=== PATIENT | female | born 1970 | race Caucasian/White ===

== ENCOUNTER 2021-02-11 13:22 | Outpatient (REF) | payer MEDICAID, SELFPAY ==
--- NOTE | 2021-02-11 11:30 | PAPFT_PTH ---
PATIENT: Cindy Herrmann LOC: [facility]#:[id number] AGE/SX: 50/F ROOM: RE02/11/[address]: Leigha Solano : 1970 BED: DIS: 02/11/2021 SPEC #: [id number] RECD: 02/14/21 12:53 STATUS: RADHA REIron #: [id number] SANDY: 02/11/21 11:[address]: Leigha Solano DEPT: [facility] Cytology RECD BY: Charity Sr Tissues: 1 - CX/ENDOCX FOR PAP SMEARS Procedures: PAP THIN PREP/[facility] Screening HPV DNA PROBE Comments: [id number]
[2021-02-11 20:32] LABS: HCT 38.9 % (36.0-46.0); MCH 27.5 pg (27.0-33.0); MCHC 30.8 % (32.0-36.0); MCV 89.2 fL (80-95); MPV 9.4 fL (8.0-11.0); Platelet Count 354 10^3/uL (130-400); RBC 4.36 10^6/uL (3.93-5.22); RDW 14.8 % (11.7-14.6); RDW-SD 48.5 fL; WBC 7.61 10^3/uL (4.4-10.8)
[2021-02-11 20:54] LABS: Hemoglobin A1C 5.6 % (<5.7)
[2021-02-11 20:56] LABS: ALT 14 U/L (14-59); AST 17 U/L (15-37); Albumin 3.5 g/dL (3.4-5.0); Alkaline Phosphatase 82 U/L (46-116); BUN 11 mg/dL (7-18); Bilirubin, Total 0.3 mg/dL (0.2-1.0); CREATININE 0.8 mg/dL (0.55-1.02); Calcium 8.7 mg/dL (8.5-10.1); Calculated LDL 85 mg/dL (<100); Chloride 103 mmol/L (98-107); Cholesterol 155 mg/dL (<200); Glucose 77 mg/dL (74-106); HDL Cholesterol 58 mg/dL (40-60); Potassium 4.1 mmol/L (3.5-5.1); Sodium 139 mmol/L (136-145); TSH (W/Ref FT4) 3.08 uIU/mL (0.36-3.74); Total Protein 7.7 g/dL (6.4-8.2); Triglyceride 61 mg/dL (<150)
== END 2021-02-11 13:23 | disposition home or self-care (01) ==
LOC: NCHCN 13:22
PROVIDERS: PCP Family Medicine; Visit Provider Family Medicine
DX: E03.9 Hypothyroidism, unspecified (principal); N92.0 Excessive and frequent menstruation with regular cycle; E66.9 Obesity, unspecified; Z12.4 Encounter for screening for malignant neoplasm of cervix; Z00.00 Encounter for general adult medical examination without abnormal findings; Z13.1 Encounter for screening for diabetes mellitus; Z11.51 Encounter for screening for human papillomavirus (HPV)
CPT/HCPCS: 80053; 80061; 85027; 88142; 83036; 84443; 87624

== ENCOUNTER 2024-12-01 15:16 | Outpatient (REF) | payer OTHER, SELFPAY ==
[2024-12-01 22:01] LABS: TSH 3.54 uIU/mL (0.36-3.74)
[2024-12-02 21:08] LABS: Calculated LDL 106 mg/dL (<100); Cholesterol 196 mg/dL (<200); HDL Cholesterol 71 mg/dL (>or=50); Triglyceride 98 mg/dL (<150); Vitamin D 25 Total 25 ng/mL (30-100)
== END 2024-12-01 15:17 | disposition home or self-care (01) ==
LOC: NCHCN 15:16
PROVIDERS: PCP Family Medicine; Visit Provider Family Medicine
DX: E03.9 Hypothyroidism, unspecified (principal); Z13.1 Encounter for screening for diabetes mellitus; Z13.220 Encounter for screening for lipoid disorders; Z13.21 Encounter for screening for nutritional disorder
CPT/HCPCS: 80061; 82306; 83036; 84443